=== PATIENT | male | born 1955 | race Caucasian/White ===

== ENCOUNTER 2019-08-19 10:10 | Emergency (ER) | payer MEDICARE ==
[2019-08-19] MEDS ORDERED: Ketorolac Tromethamine 60 MG/2 ML VIAL ONE (11:19)
[2019-08-19] MEDS ORDERED: Dexamethasone 10 MG/ML VIAL ONE (11:24)
== END 2019-08-19 11:38 | disposition home or self-care (01) ==
LOC: ERS 10:10
DX: M54.5 Low back pain (principal); G89.29 Other chronic pain; I25.10 Atherosclerotic heart disease of native coronary artery without angina pectoris; I10 Essential (primary) hypertension; F17.290 Nicotine dependence, other tobacco product, uncomplicated; I25.2 Old myocardial infarction; Z95.5 Presence of coronary angioplasty implant and graft; Z79.899 Other long term (current) drug therapy
CPT/HCPCS: 96372; 99283; J1100; J1885

== ENCOUNTER 2023-08-24 09:18 | Outpatient (CLI) | payer MEDICARE | END 2023-08-24 09:19 | disposition home or self-care (01) | LOC: BICMAMMO 09:18 | PROVIDERS: ATTEND Neurological Surgery | DX: Z13.820 Encounter for screening for osteoporosis (principal); M48.56XA Collapsed vertebra, not elsewhere classified, lumbar region, initial encounter for fracture; M85.851 Other specified disorders of bone density and structure, right thigh; M85.852 Other specified disorders of bone density and structure, left thigh | CPT/HCPCS: 77080 ==

== ENCOUNTER 2024-01-31 07:44 | Outpatient (CLI) | payer OTHER, MEDICARE | END 2024-01-31 07:45 | disposition home or self-care (01) | LOC: NM 07:44 | PROVIDERS: ATTEND Nurse Practitioner Family | DX: S22.080A Wedge compression fracture of T11-T12 vertebra, initial encounter for closed fracture (principal) | CPT/HCPCS: 78306; A9503 ==

== ENCOUNTER 2025-05-01 09:57 | Outpatient (CLI) | payer MEDICARE | END 2025-05-01 09:58 | disposition home or self-care (01) | LOC: RAD 09:57 | PROVIDERS: ATTEND Nurse Practitioner Family | DX: M54.14 Radiculopathy, thoracic region (principal); M48.062 Spinal stenosis, lumbar region with neurogenic claudication; I51.7 Cardiomegaly | CPT/HCPCS: 71046 ==

== ENCOUNTER 2025-05-06 12:51 | Outpatient (CLI) | payer MEDICARE | END 2025-05-06 12:52 | disposition home or self-care (01) | LOC: MRI 12:51 | PROVIDERS: ATTEND Nurse Practitioner Family | DX: M54.14 Radiculopathy, thoracic region (principal); M48.062 Spinal stenosis, lumbar region with neurogenic claudication | CPT/HCPCS: 72146; 72148; 76014 ==